=== PATIENT | female | born 1965 | race African-American/Black ===

== ENCOUNTER 2017-06-09 16:09 | Emergency (ER) | payer OTHER ==
[2017-06-09 16:17] VITALS: BP 151/78; PULSE 70; TEMP 99.5; BMI 39.9
--- NOTE | 2017-06-09 16:17 | PDOC ---
Rapid Medical Evaluation Time Seen by Provider: 06/09/17 16:15 Medical Evaluation: Allergies Allergy/AdvReac Type Severity Reaction Status Date / Time No Known Allergies Allergy Verified 11/26/15 09:40 06/09/17 16:15 I have performed a brief in-person evaluation of this patient. The patient presents with a chief complaint of: generalized body aches, chills, coughing x 3 days Pertinent physical exam findings: well appearing, lungs ctab I have ordered the following: nothing The patient will proceed to the ED for further evaluation.
--- NOTE | 2017-06-09 17:06 | PDOC ---
History of Present Illness - General Chief Complaint: Cold Symptoms Stated Complaint: BODYACHE/PAIN Time Seen by Provider: 06/09/17 16:15 History Source: Patient - History of Present Illness Timing/Duration: reports: other Associated Symptoms: reports: cough, fever/chills, muscle aches. denies: chest pain/soreness, earache, headache, shortness of breath, sore throat Past History - Past Medical History Allergies/Adverse Reactions: Allergies Allergy/AdvReac Type Severity Reaction Status Date / Time No Known Allergies Allergy Verified 06/09/17 16:17 Home Medications: Ambulatory Orders Amlodipine Besylate [Norvasc -] 5 mg PO HS 09/30/13 Candesartan/Hydrochlorothiazid [Atacand Hct 32-12.5 mg -] 1 mg PO DAILY COPD: No HTN: Yes - Surgical History Orthopedic Surgery: Yes (LEFT KNEE MIYA) - Suicide/Smoking/Psychosocial Hx Smoking History: Never smoked Have you smoked in the past 12 months: No Information on smoking cessation initiated: No Hx Alcohol Use: No Drug/Substance Use Hx: No Substance Use Type: None Hx Substance Use Treatment: No Review of Systems - Review of Systems Constitutional: Yes: Malaise. No: Chills, Fever HEENTM: No: Ear Pain, Throat Pain Respiratory: Yes: Cough. No: Shortness of Breath, Wheezing Cardiac (ROS): No: Chest Pain *Physical Exam - Vital Signs Last Vital Signs Temp Pulse Resp BP Pulse Ox 99.5 F 70 19 151/78 100 06/09/17 16:16 06/09/17 16:16 06/09/17 16:16 06/09/17 16:16 06/09/17 16:16 - Physical Exam General Appearance: Yes: Appropriately Dressed. No: Apparent Distress HEENT: positive: Normal ENT Inspection, Normal Voice. negative: Pharynx Normal , Scleral Icterus (R), Scleral Icterus (L) Neck: positive: Supple. negative: Lymphadenopathy (R), Lymphadenopathy (L) Respiratory/Chest: positive: Lungs Clear, Normal Breath Sounds. negative: Respiratory Distress Cardiovascular: positive: Regular Rate, S1, S2 Integumentary: positive: Dry, Warm Neurologic: positive: Fully Oriented, Alert, Normal Mood/Affect Medical Decision Making - Medical Decision Making 06/09/17 16:59 42-year-old female, no significant history here with body aches with chills and dry cough 3 days. Taking Motrin with some relief, but states symptoms recur. No shortness of breath, chest pain, fever, chills, diarrhea, nausea, vomiting or rash. 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 Patient well-appearing and stable with unremarkable exam. Most likely viral. Discharge with supportive treatment. 06/09/17 17:36 *DC/Admit/Observation/Transfer Diagnosis at time of Disposition: Viral syndrome - Discharge Dispostion Disposition: HOME Condition at time of disposition: Good - Referrals - Patient Instructions Printed Discharge Instructions: DI for Viral Syndrome Additional Instructions: Your symptoms are most likely viral. Rest, drink plenty of fluids and take Motrin or Tylenol every 6 hours as needed for pain and/or fever - Post Discharge Activity Forms/Work/School Notes: Back to Work
[2017-06-09] MEDS ORDERED: IBUPROFEN 400 MG TABLET (FP) PO ONE ×2 (17:07→17:09)
== END 2017-06-09 17:14 | disposition home or self-care (01) ==
LOC: JERFT 16:09
DX: B34.9 Viral infection, unspecified (principal); I10 Essential (primary) hypertension
CPT/HCPCS: 99281-25

== ENCOUNTER 2018-04-27 08:04 | Emergency (ER) | payer OTHER ==
[2018-04-27 08:16] VITALS: BP 155/88; PULSE 55; TEMP 98; BMI 32.2
--- NOTE | 2018-04-27 09:03 | PDOC ---
History of Present Illness - General Chief Complaint: Injury Stated Complaint: Injury Time Seen by Provider: 04/27/18 08:20 History Source: Patient Exam Limitations: No Limitations - History of Present Illness Initial Comments: 04/27/18 08:43 Slipped and fell this morning falling onto outstretched arm, and jerking her right arm. Occurred: reports: just prior to arrival Past History - Travel Traveled outside of the country in the last 30 days: No Close contact w/someone who was outside of country & ill: No - Past Medical History Allergies/Adverse Reactions: Allergies Allergy/AdvReac Type Severity Reaction Status Date / Time No Known Allergies Allergy Verified 06/09/17 16:17 Home Medications: Ambulatory Orders Amlodipine Besylate [Norvasc -] 5 mg PO HS 09/30/13 Candesartan/Hydrochlorothiazid [Atacand Hct 32-12.5 mg -] 1 mg PO DAILY Naproxen [Naprosyn -] 500 mg PO BID #30 tablet 04/27/18 COPD: No HTN: Yes - Surgical History Orthopedic Surgery: Yes (LEFT KNEE MIYA) - Suicide/Smoking/Psychosocial Hx Smoking History: Never smoked Have you smoked in the past 12 months: No Information on smoking cessation initiated: No Hx Alcohol Use: No Drug/Substance Use Hx: No Substance Use Type: None Hx Substance Use Treatment: No Review of Systems - Review of Systems Able to Perform ROS?: Yes Is the patient limited [place] proficient: Yes Constitutional: Yes: Symptoms Reported, See HPI, Malaise HEENTM: No: Symptoms Reported Respiratory: No: Symptoms reported Musculoskeletal: Yes: Symptoms Reported, See HPI, Joint Swelling, Joint Stiffness (right elbow) Integumentary: Yes: Symptoms Reported, See HPI All Other Systems: Reviewed and Negative *Physical Exam - Vital Signs Last Vital Signs Temp Pulse Resp BP Pulse Ox 98 F 55 L 16 155/88 100 04/27/18 08:15 04/27/18 08:15 04/27/18 08:15 04/27/18 08:15 04/27/18 08:15 - Physical Exam General Appearance: Yes: Nourished, Appropriately Dressed, Apparent Distress, Mild Distress HEENT: positive: YARON, Normal ENT Inspection, TMs Normal, Pharynx Normal Neck: positive: Supple. negative: Tender Musculoskeletal: positive: Normal Inspection, Decreased Range of Motion (to right elbow, able to supinate and pronate but is painful to the lateral aspect of her right distal humerus) Extremity: positive: Normal Capillary Refill, Normal Inspection, Normal Range of Motion, Tender Integumentary: positive: Normal Color Neurologic: positive: handkerchief presser II-XII NML intact, Fully Oriented, Alert, Normal Mood/ Affect, Normal Response, Motor Strength 5/5 Moderate Sedation - Procedure Monitoring Vital Signs: Procedure Monitoring Vital Signs Temperature 98 F 04/27/18 08:15 Pulse Rate 55 L 04/27/18 08:15 Respiratory Rate 16 04/27/18 08:15 Blood Pressure 155/88 04/27/18 08:15 O2 Sat by Pulse Oximetry (%) 100 04/27/18 08:15 ED Treatment Course - RADIOLOGY Radiology Studies Ordered: Category Date Time Status ELBOW-RIGHT [RAD] Stat Radiology 04/27/18 08:41 Ordered Progress Note - Progress Note Progress Note: X-ray shows avulsion on the lateral aspect of proximal ulna consistent with a sprained elbow. Sling provided, will provide NSAIDs and have follow-up with orthopedist week *DC/Admit/Observation/Transfer Diagnosis at time of Disposition: Sprain of elbow, right Qualifiers: Encounter type: initial encounter Qualified Code(s): S53.401A - Unspecified sprain of right elbow, initial encounter - Discharge Dispostion Disposition: HOME Condition at time of disposition: Stable Decision to Admit order: No - Prescriptions Prescriptions: Naproxen [Naprosyn -] 500 mg PO BID #30 tablet - Referrals Referrals: Luis Gruber MD [Staff Physician] - - Patient Instructions Printed Discharge Instructions: DI for Elbow Pain Additional Instructions: Rest, ice to area on and off for 15 minutes 4-6 times a day Avoid heavy lifting or exercise until pain and swelling is resolved or until further directed Keep area highly elevated to reduce swelling Use splints/Eleuterio wrap as directed Followup with orthopedist in one to 2 days if not improving, if significantly improved may wait one week for followup with orthopedist May use Naprosyn 1500 milligrams tablet every 12 hours as needed for pain - Post Discharge Activity Forms/Work/School Notes: Back to Work
== END 2018-04-27 09:38 | disposition home or self-care (01) ==
LOC: JERFT 08:04
DX: S53.401A Unspecified sprain of right elbow, initial encounter (principal); W01.0XXA Fall on same level from slipping, tripping and stumbling without subsequent striking against object, initial encounter; Y93.89 Activity, other specified; Y92.89 Other specified places as the place of occurrence of the external cause; Y99.8 Other external cause status
CPT/HCPCS: 73070-TC-RT-FY; 99281-25

== ENCOUNTER 2020-09-17 07:41 | Emergency (ER) | payer OTHER ==
[2020-09-17 08:15] VITALS: BP 165/74; PULSE 52; TEMP 98; BMI 36.2
[2020-09-17] MEDS ORDERED: SODIUM CHLORIDE 0.9% 500 ML INFUS.BAG IV ONE (09:39)
[2020-09-17 09:49] LABS: BASO % 0.8 % (0-2.0); EOS % 2.3 % (0-4.5); HEMATOCRIT 34.2 % (32.4-45.2); HEMOGLOBIN 11.2 GM/dL (10.7-15.3); LYMPH % 24.1 % (8-40); MCH 27.3 pg (25.7-33.7); MCHC 32.8 g/dl (32.0-36.0); MEAN CELL VOLUME 83.2 fl (80-96); MEAN PLT VOLUME 8.4 fl (7.5-11.1); MONO % 13.1 % (3.8-10.2); NEUT % 59.7 % (42.8-82.8); PLATELET COUNT 231 10^3/uL (134-434); RBC 4.11 M/mm3 (3.60-5.2); RDW 14.7 % (11.6-15.6); WHITE BLOOD COUNT 4.2 K/mm3 (4.0-10.0)
[2020-09-17] MEDS ORDERED: ACETAMINOPHEN 325 MG TABLET (FP) PO ONE (09:50)
[2020-09-17 09:53] LABS: PH,URINE 5.5 (5.0-8.0); URINE APPEARANCE CLEAR; URINE BILIRUBIN NEGATIVE (NEGATIVE); URINE COLOR YELLOW; URINE GLUCOSE (UA) NEGATIVE (NEGATIVE); URINE KETONE NEGATIVE (NEGATIVE); URINE LEUK ESTERASE NEGATIVE (NEGATIVE); URINE NITRITE NEGATIVE (NEGATIVE); URINE PROTEIN NEGATIVE (NEGATIVE)
[2020-09-17] MEDS ORDERED: ACETAMINOPHEN 325 MG TABLET (FP) ONE (10:05)
[2020-09-17 10:11] LABS: CHLORIDE 105 mmol/L (98-107); SODIUM 135 mmol/L (136-145)
[2020-09-17 10:13] LABS: ALBUMIN 3.4 g/dl (3.4-5.0); ANION GAP 4 MMOL/L (8-16); CO2 26 mmol/L (21-32); GLUCOSE,RANDOM 77 mg/dL (74-106); MAGNESIUM 2.1 mg/dL (1.8-2.4)
[2020-09-17 10:16] LABS: CREATININE 0.9 mg/dL (0.55-1.3); SGOT/AST 26 U/L (15-37); SGPT/ALT 24 U/L (13-61)
[2020-09-17 10:18] LABS: BILIRUBIN,TOTAL 0.3 mg/dL (0.2-1); TOT PROT 9.2 g/dl (6.4-8.2)
[2020-09-17 10:19] LABS: ALK PHOS 54 U/L (45-117)
[2020-09-17 10:21] LABS: N-TERMINAL BNP 113.6 pg/ml (5-125)
== END 2020-09-17 11:54 | disposition home or self-care (01) ==
LOC: JER 07:41
DX: R42 Dizziness and giddiness (principal); R55 Syncope and collapse
CPT/HCPCS: 36415; 71045-TC-FY; 80053; 81003; 82550; 82553; 83735; 83880; 84443; 84484; 84703; 85025; 93005; 93010; 99285-25